=== PATIENT | female | born 1965 | race Caucasian/White ===

== ENCOUNTER 2020-03-20 18:14 | Emergency (ER) | payer MEDICARE, MEDICAID ==
[2020-03-20] MEDS ORDERED: HYDROmorphone 0.5 MG/0.5 ML Syringe IVPUSH ONE ×2 (18:18→19:30)
[2020-03-20] MEDS ORDERED: Ondansetron 4 MG/2 ML SDV IVPUSH ONE (18:18)
[2020-03-20] MEDS ORDERED: Sodium Chloride 0.9% 1,000 ML IV SCH (18:30)
--- NOTE | 2020-03-20 19:44 | CRLCR ---
INDICATION: Right buttocks pain TECHNIQUE: Lumbar spine 2 view. COMPARISON: None FINDINGS: Bones: Chronic multilevel mild compression deformities. Joints: Disc spaces and facets are unremarkable. Soft tissues: Unremarkable. IMPRESSION: Chronic multilevel mild compression deformities. Dictated by Johnathon De Leon MD @ 03/20/2020 7:43:23 PM Dictated by: Johnathon De Leon MD @ 03/20/2020 19:43:29 (Electronically Signed)
--- NOTE | 2020-03-20 19:46 | CRLCR ---
INDICATION: Buttocks pain TECHNIQUE: AP pelvis and two views right hip COMPARISON: None FINDINGS: Bones: Alignment is normal. No fractures or bone lesions. Joint spaces: Narrowing and degenerative changes both hip joints right greater than left. Soft tissues: Unremarkable. IMPRESSION: Narrowing and degenerative changes both hip joints right greater then left. Dictated by Johnathon De Leon MD @ 03/20/2020 7:45:01 PM Dictated by: Johnathon De Leon MD @ 03/20/2020 19:45:07 (Electronically Signed)
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
[2020-03-20] MEDS ORDERED: HYDROmorphone 1 MG/ML Syringe IVPUSH ONE ×2 (20:10→21:26)
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
[2020-03-20 21:34] VITALS: BP 125/77; PULSE 101
[2020-03-20] MEDS ORDERED: Nicotine 21 MG/24 Hr Patch TRDERM ONE (21:38)
== END 2020-03-20 21:57 ==
LOC: JP.ED 18:14
DX: S32.10XA Unspecified fracture of sacrum, initial encounter for closed fracture (principal); S32.591A Other specified fracture of right pubis, initial encounter for closed fracture; E87.5 Hyperkalemia; N28.9 Disorder of kidney and ureter, unspecified; Z88.1 Allergy status to other antibiotic agents; Z91.041 Radiographic dye allergy status; V86.59XA Driver of other special all-terrain or other off-road motor vehicle injured in nontraffic accident, initial encounter
CPT/HCPCS: 36415; 51702; 72100; 72131; 72192; 73502; 80053; 81001; 85025; 96361; 96374; 96375; 96376; 99285; A9270; J1170; J2405; J7030

== ENCOUNTER 2022-12-25 11:44 | Emergency (ER) | payer MEDICARE, MEDICAID ==
[2022-12-25 14:04] LABS: BASOPHILS ABSOLUTE AUTO 0.08 K/uL (0.00-0.10); BASOPHILS PERCENT AUTO 0.9 % (0.1-1.3); EOSINOPHILS ABSOLUTE AUTO 0.07 K/uL (0.00-0.40); EOSINOPHILS PERCENT AUTO 0.7 % (0.0-5.4); HEMATOCRIT 38.2 % (34.3-46.0); HEMOGLOBIN 12.5 g/dL (11.2-15.5); IMMATURE GRAN ABSOLUTE AUTO 0.05 K/uL (0.00-0.23); IMMATURE GRAN PERCENT AUTO 0.5 % (0.0-0.7); LYMPHOCYTES ABSOLUTE AUTO 0.83 K/uL (0.8-3.3); LYMPHOCYTES PERCENT AUTO 8.9 % (11.4-47.7); MEAN CORPUSCULAR HEMOGLOBIN 30.3 pg (31.6-35.5); MEAN CORPUSCULAR HGB CONC 32.7 g/dL (31.6-35.5); MEAN CORPUSCULAR VOLUME 92.7 fL (81.4-99.0); MONOCYTES ABSOLUTE AUTO 0.39 K/uL (0.20-0.90); MONOCYTES PERCENT AUTO 4.2 % (3.3-12.6); NEUTROPHILS ABSOLUTE AUTO 7.94 K/uL (1.0-7.6); NEUTROPHILS PERCENT AUTO 84.8 % (40.0-78.1); PLATELET COUNT,PLT 127 K/uL (130-375); RED BLOOD CELL COUNT 4.12 M/uL (3.77-5.24); WHITE BLOOD CELL COUNT,WBC 9.4 K/uL (3.2-11.0)
[2022-12-25] MEDS ORDERED: cefTRIAXone 2 GM in Sodium Chloride 0.9% 50 ML IV ONE (14:06)
[2022-12-25 14:22] LABS: ALANINE AMINOTRANSFERASE,ALT 19 U/L (12-78); ALBUMIN 3.6 g/dL (3.4-5.0); ALKALINE PHOSPHATASE 82 U/L (46-116); ASPARTATE AMNIOTRANSFERASE,AST 12 U/L (15-37); BILIRUBIN TOTAL 0.6 mg/dL (0.2-1.0); CARBON DIOXIDE,CO2 24 mmol/L (21-32); CHLORIDE,CL 101 mmol/L (100-108); EST CRCL DRUG DOSING (CG) 7.78 mL/min; ESTIMATED GFR 5 mL/min (>60); GLUCOSE RANDOM 111 mg/dL (74-106); POTASSIUM,K 4.9 mmol/L (3.6-5.2); PROTEIN TOTAL,TP 7.4 g/dL (6.4-8.2); SODIUM,NA 139 mmol/L (140-148)
[2022-12-25 14:24] LABS: ANION GAP 18.9 mmol/L (5.0-14.0)
[2022-12-25 14:25] LABS: BLOOD UREA NITROGEN,BUN 79 mg/dL (7-18); CREATININE 8.9 mg/dL (0.6-1.0)
[2022-12-25 16:23] VITALS: BP 125/79; PULSE 98
== END 2022-12-25 16:20 | disposition home or self-care (01) ==
LOC: JP.ED 11:44
DX: L03.116 Cellulitis of left lower limb (principal); Z88.5 Allergy status to narcotic agent; Z88.1 Allergy status to other antibiotic agents; Z91.041 Radiographic dye allergy status
CPT/HCPCS: 36415; 80053; 85025; 85379; 93971; 96365; 99284; J0696; J3490; 99283

== ENCOUNTER 2023-11-26 18:17 | Emergency (ER) | payer MEDICARE, MEDICAID ==
[2023-11-26] MEDS: Albuterol/Ipratropium 3.0-0.5 MG/3 ML Neb Soln NEB ONE (19:50)
[2023-11-26 20:27] VITALS: BP 114/77; PULSE 91
== END 2023-11-26 20:25 | disposition home or self-care (01) ==
LOC: JP.ED 18:17
DX: J44.1 Chronic obstructive pulmonary disease with (acute) exacerbation (principal); I25.10 Atherosclerotic heart disease of native coronary artery without angina pectoris; E78.00 Pure hypercholesterolemia, unspecified; I25.2 Old myocardial infarction; N18.9 Chronic kidney disease, unspecified; F17.210 Nicotine dependence, cigarettes, uncomplicated; Z88.8 Allergy status to other drugs, medicaments and biological substances; Z88.1 Allergy status to other antibiotic agents; Z91.041 Radiographic dye allergy status; Z79.899 Other long term (current) drug therapy; Z99.2 Dependence on renal dialysis; Z95.5 Presence of coronary angioplasty implant and graft; Z79.82 Long term (current) use of aspirin
CPT/HCPCS: 94640; 99284; J7620

== ENCOUNTER 2024-03-09 18:03 | Emergency (ER) | payer MEDICAID, MEDICARE ==
[2024-03-09 18:37] LABS: BASOPHILS ABSOLUTE AUTO 0.06 K/uL (0.00-0.10); BASOPHILS PERCENT AUTO 0.9 % (0.1-1.3); EOSINOPHILS ABSOLUTE AUTO 0.14 K/uL (0.00-0.40); EOSINOPHILS PERCENT AUTO 2.1 % (0.0-5.4); HEMATOCRIT 34.3 % (34.3-46.0); HEMOGLOBIN 11.6 g/dL (11.2-15.5); IMMATURE GRAN ABSOLUTE AUTO 0.06 K/uL (0.00-0.23); IMMATURE GRAN PERCENT AUTO 0.9 % (0.0-0.7); LYMPHOCYTES ABSOLUTE AUTO 0.78 K/uL (0.8-3.3); LYMPHOCYTES PERCENT AUTO 11.7 % (11.4-47.7); MEAN CORPUSCULAR HEMOGLOBIN 31.4 pg (31.6-35.5); MEAN CORPUSCULAR HGB CONC 33.8 g/dL (31.6-35.5); MONOCYTES ABSOLUTE AUTO 0.37 K/uL (0.20-0.90); MONOCYTES PERCENT AUTO 5.5 % (3.3-12.6); NEUTROPHILS ABSOLUTE AUTO 5.28 K/uL (1.0-7.6); NEUTROPHILS PERCENT AUTO 78.9 % (40.0-78.1); PLATELET COUNT,PLT 199 K/uL (130-375); RED BLOOD CELL COUNT 3.69 M/uL (3.77-5.24); WHITE BLOOD CELL COUNT,WBC 6.7 K/uL (3.2-11.0)
[2024-03-09 18:52] LABS: BLOOD UREA NITROGEN,BUN 47 mg/dL (7-18); CALCIUM 8.8 mg/dL (8.5-10.1); CARBON DIOXIDE,CO2 26 mmol/L (21-32); CHLORIDE,CL 96 mmol/L (100-108); ESTIMATED GFR 8 mL/min (>60); GLUCOSE RANDOM 112 mg/dL (74-106); POTASSIUM,K 4.9 mmol/L (3.6-5.2); SODIUM,NA 135 mmol/L (140-148)
[2024-03-09 18:53] LABS: ANION GAP 17.9 mmol/L (5.0-14.0)
[2024-03-09] MEDS ORDERED: Naloxone 0.4 MG/ML SDV IVPUSH PRN ×2 (19:24→21:41)
[2024-03-09] MEDS: HYDROmorphone 0.5 MG/0.5 ML Syringe IVPUSH ONE (19:52)
[2024-03-09] MEDS: Morphine 2 MG/ML SYRINGE IVPUSH ONE (22:12)
[2024-03-09 22:32] VITALS: BP 120/83; PULSE 90
== END 2024-03-09 22:51 | disposition other institution (70) ==
LOC: JP.ED 18:03
DX: S72.001A Fracture of unspecified part of neck of right femur, initial encounter for closed fracture (principal); I25.10 Atherosclerotic heart disease of native coronary artery without angina pectoris; I25.2 Old myocardial infarction; E78.00 Pure hypercholesterolemia, unspecified; Z95.5 Presence of coronary angioplasty implant and graft; F17.210 Nicotine dependence, cigarettes, uncomplicated; N18.9 Chronic kidney disease, unspecified; Z99.2 Dependence on renal dialysis; Z79.82 Long term (current) use of aspirin; Z79.899 Other long term (current) drug therapy; Z88.1 Allergy status to other antibiotic agents; Z91.041 Radiographic dye allergy status; W18.30XA Fall on same level, unspecified, initial encounter
CPT/HCPCS: 36415; 73502; 80048; 85025; 96374; 96375; 99285; J1170; J2270

== ENCOUNTER 2024-04-08 08:26 | Emergency (ER) | payer MEDICARE ==
[2024-04-08 09:30] LABS: HEMATOCRIT 35.4 % (34.3-46.0); HEMOGLOBIN 12.2 g/dL (11.2-15.5); MEAN CORPUSCULAR HEMOGLOBIN 32.6 pg (31.6-35.5); MEAN CORPUSCULAR HGB CONC 34.5 g/dL (31.6-35.5); MEAN CORPUSCULAR VOLUME 94.7 fL (81.4-99.0); PLATELET COUNT,PLT 142 K/uL (130-375); RED BLOOD CELL COUNT 3.74 M/uL (3.77-5.24); WHITE BLOOD CELL COUNT,WBC 3.8 K/uL (3.2-11.0)
[2024-04-08] MEDS ORDERED: Piperacillin/Tazobactam 3.375 GM in Sodium Chloride 0.9% 50 ML IV ONE (09:30)
[2024-04-08 09:36] LABS: INR 1.1
[2024-04-08 09:40] LABS: A/G RATIO 0.8 (1.2-2.2); ALANINE AMINOTRANSFERASE,ALT 21 U/L (12-78); ALBUMIN 3.2 g/dL (3.4-5.0); ALKALINE PHOSPHATASE 91 U/L (46-116); ASPARTATE AMNIOTRANSFERASE,AST 19 U/L (15-37); BILIRUBIN TOTAL 0.9 mg/dL (0.2-1.0); BLOOD UREA NITROGEN,BUN 36 mg/dL (7-18); CALCIUM 9.6 mg/dL (8.5-10.1); CARBON DIOXIDE,CO2 31 mmol/L (21-32); CHLORIDE,CL 96 mmol/L (100-108); EST CRCL DRUG DOSING (CG) 12.77 mL/min; ESTIMATED GFR 9 mL/min (>60); GLUCOSE RANDOM 115 mg/dL (74-106); POTASSIUM,K 4.4 mmol/L (3.6-5.2); PROTEIN TOTAL,TP 7.2 g/dL (6.4-8.2); SODIUM,NA 138 mmol/L (140-148)
[2024-04-08 09:42] LABS: ANION GAP 15.4 mmol/L (5.0-14.0)
[2024-04-08] MEDS: Piperacillin/Tazobactam 4.5 GM in Sodium Chloride 0.9% 100 ML IV ONE (09:52)
[2024-04-08] MEDS: Sodium Chloride 0.9% 250 ML IV SCH (09:53)
[2024-04-08] MEDS: Clindamycin in 0.9 % Sod Chlor 900 MG in Premix Bag 1 BAG IV ONE (09:53)
[2024-04-08 09:57] LABS: BAND ABSOLUTE MAN 0.61 K/uL; BAND PERCENT MAN 16 % (5-11); LYMPHOCYTES ABSOLUTE MAN 0.46 K/uL (0.8-3.3); LYMPHOCYTES PERCENT MAN 12 % (24-44); MONOCYTES ABSOLUTE MAN 0.15 K/uL (0.20-0.90); MONOCYTES PERCENT MAN 4 % (2-6); NEUTROPHILS ABSOLUTE MAN 2.58 K/uL (1.0-7.6); SEG NEUTROPHILS PERCENT MAN 68 % (36-66)
[2024-04-08] MEDS: HYDROmorphone 1 MG/ML Syringe IVPUSH ONE (12:20)
[2024-04-08 16:34] VITALS: BP 113/74; PULSE 91
== END 2024-04-08 16:45 ==
LOC: JP.ED 08:26
DX: A41.9 Sepsis, unspecified organism (principal); L76.82 Other postprocedural complications of skin and subcutaneous tissue; M79.89 Other specified soft tissue disorders; I25.10 Atherosclerotic heart disease of native coronary artery without angina pectoris; F17.210 Nicotine dependence, cigarettes, uncomplicated; Z88.1 Allergy status to other antibiotic agents; Z91.041 Radiographic dye allergy status; Z88.8 Allergy status to other drugs, medicaments and biological substances; Z79.82 Long term (current) use of aspirin; Z79.899 Other long term (current) drug therapy; Z90.49 Acquired absence of other specified parts of digestive tract
CPT/HCPCS: 36415; 71045; 71045-26; 73700-26-RT; 73700-RT; 80053; 83605; 85025; 85610; 87040; 87070; 87077; 87186; 87205; 93971-26; 93971-RT; 96361; 96365; 96368; 96375; 99285; 99285-25; J0736; J1170; J2543; J3490; J7050

== ENCOUNTER 2024-04-12 18:03 | Emergency (ER) | payer MEDICARE ==
[2024-04-12] MEDS: cefTRIAXone 1 GM in Sodium Chloride 0.9% 50 ML IV ONE (20:07)
[2024-04-12] MEDS: Acetaminophen/HYDROcodone 325-5 MG Tab PO ONE (20:08)
[2024-04-12 21:15] VITALS: BP 110/65; PULSE 97
[2024-04-12] MEDS: Vancomycin 1 GM SDV IV ONE (23:51)
== END 2024-04-12 21:00 | disposition other institution (70) ==
LOC: JP.ED 18:03
DX: L03.115 Cellulitis of right lower limb (principal); N18.5 Chronic kidney disease, stage 5; E78.00 Pure hypercholesterolemia, unspecified; I25.10 Atherosclerotic heart disease of native coronary artery without angina pectoris; I25.2 Old myocardial infarction; F17.210 Nicotine dependence, cigarettes, uncomplicated; Z90.49 Acquired absence of other specified parts of digestive tract; Z86.16 Personal history of COVID-19; Z79.899 Other long term (current) drug therapy; Z79.82 Long term (current) use of aspirin; Z88.1 Allergy status to other antibiotic agents; Z88.8 Allergy status to other drugs, medicaments and biological substances; Z91.041 Radiographic dye allergy status
CPT/HCPCS: 87070; 87205; 96365; 99284; A9270; J0696; J3490; 87077; 87186

== ENCOUNTER 2025-02-16 19:25 | Emergency (ER) | payer MEDICARE ==
[2025-02-16 19:51] VITALS: BP 121/76; PULSE 107
[2025-02-16 20:16] LABS: BASOPHILS ABSOLUTE AUTO 0.09 K/uL (0.00-0.10); BASOPHILS PERCENT AUTO 1.1 % (0.1-1.3); EOSINOPHILS ABSOLUTE AUTO 0.15 K/uL (0.00-0.40); EOSINOPHILS PERCENT AUTO 1.9 % (0.0-5.4); IMMATURE GRAN ABSOLUTE AUTO 0.04 K/uL (0.00-0.23); IMMATURE GRAN PERCENT AUTO 0.5 % (0.0-0.7); LYMPHOCYTES ABSOLUTE AUTO 1.05 K/uL (0.8-3.3); LYMPHOCYTES PERCENT AUTO 13.0 % (11.4-47.7); MONOCYTES ABSOLUTE AUTO 0.35 K/uL (0.20-0.90); MONOCYTES PERCENT AUTO 4.3 % (3.3-12.6); NEUTROPHILS ABSOLUTE AUTO 6.41 K/uL (1.0-7.6); NEUTROPHILS PERCENT AUTO 79.2 % (40.0-78.1); PLATELET COUNT,PLT 257 K/uL (130-375); RED BLOOD CELL COUNT 3.95 M/uL (3.77-5.24); WHITE BLOOD CELL COUNT,WBC 8.1 K/uL (3.2-11.0)
[2025-02-16 20:38] LABS: A/G RATIO 0.8 (1.2-2.2); ALANINE AMINOTRANSFERASE,ALT 16 U/L (12-78); ASPARTATE AMNIOTRANSFERASE,AST 10 U/L (15-37); BILIRUBIN TOTAL 0.7 mg/dL (0.2-1.0); BLOOD UREA NITROGEN,BUN 26 mg/dL (7-18); CARBON DIOXIDE,CO2 33 mmol/L (21-32); CHLORIDE,CL 95 mmol/L (100-108); ESTIMATED GFR 14 mL/min (>60); GLUCOSE RANDOM 149 mg/dL (74-106); POTASSIUM,K 3.9 mmol/L (3.6-5.2); PROTEIN TOTAL,TP 7.8 g/dL (6.4-8.2); SODIUM,NA 137 mmol/L (140-148)
[2025-02-16 20:40] LABS: CREATININE 3.7 mg/dL (0.6-1.0)
[2025-02-16 20:43] LABS: LACTIC ACID 0.8 mmol/L (0.4-2.0)
== END 2025-02-16 21:00 | disposition home or self-care (01) ==
LOC: JP.ED 19:25
DX: L03.116 Cellulitis of left lower limb (principal); I25.10 Atherosclerotic heart disease of native coronary artery without angina pectoris; I25.2 Old myocardial infarction; E78.00 Pure hypercholesterolemia, unspecified; F17.200 Nicotine dependence, unspecified, uncomplicated; Z86.16 Personal history of COVID-19; Z90.49 Acquired absence of other specified parts of digestive tract; Z88.8 Allergy status to other drugs, medicaments and biological substances; Z91.041 Radiographic dye allergy status; Z79.82 Long term (current) use of aspirin; Z79.899 Other long term (current) drug therapy
CPT/HCPCS: 36415; 80053; 83605; 85025; 86140; 99283